=== PATIENT | male | born 1945 | race Caucasian/White ===

== ENCOUNTER 2016-12-05 09:30 | Outpatient (RCR) | payer MEDICARE, OTHER ==
[~2016-12-05 09:30] MED LIST: ADALAT CC30 MG PO; ASPIRIN 81M81 MG/TA2 PO; BP MEDS X2; FOLIC ACID0.4 MG PO; HCTZ PO; HYDROCODONE/APAP PO; IRON325 MG PO; LOTENSIN5 MG PO; NORCO 325 MG-51 TAB PO; TYLENOL 325MG325 MG PO; ULTRAM 50MG TAB50 MG PO; ZOCOR 40MG40 MG PO; ZOCOR5 MG PO
== END 2016-12-08 | disposition home or self-care (01) ==
LOC: WSPT
DX: M51.35 Other intervertebral disc degeneration, thoracolumbar region (principal); M43.16 Spondylolisthesis, lumbar region
CPT/HCPCS: G8978-GP; G8979-GP

== ENCOUNTER 2017-03-05 08:00 | Outpatient (RCR) | payer MEDICARE, OTHER | END 2017-03-12 | disposition home or self-care (01) | LOC: WSPT | DX: M51.35 Other intervertebral disc degeneration, thoracolumbar region (principal); M43.16 Spondylolisthesis, lumbar region | CPT/HCPCS: G8978-GP; G8979-GP ==

== ENCOUNTER → 2017-04-21 | Outpatient (CLI) | payer MEDICARE, OTHER ==
[~2017-04-21] VITALS: Ht 180.3 cm; Wt 91.5 kg
[~2017-04-21] MED LIST changes: +FLOMAX 0.40.4 MG/CAP PO; +ZOFRAN ODT4 MG PO
[2017-04-21 07:02] VITALS: BP 139/79; BP 153/84; PULSE 73
[2017-04-21 08:12] VITALS: BP 149/81; PULSE 74
== END ==
LOC: COL.RAD 06:45
DX: M51.36 Other intervertebral disc degeneration, lumbar region (principal)
CPT/HCPCS: J3301

== ENCOUNTER 2017-05-01 13:15 | Outpatient (RCR) | payer MEDICARE, OTHER ==
[~2017-05-01 13:15] MED LIST changes: -FLOMAX 0.40.4 MG/CAP PO; -ZOFRAN ODT4 MG PO
== END 2017-05-07 07:56 | disposition still patient (30) ==
LOC: WSPT 13:15
DX: M51.35 Other intervertebral disc degeneration, thoracolumbar region (principal)
CPT/HCPCS: G8979-GP; G8980-GP

== ENCOUNTER 2017-05-21 06:05 | Emergency (ER) | payer MEDICARE, OTHER ==
[~2017-05-21] VITALS: Ht 180.3 cm; Wt 88.2 kg
[2017-05-21 06:07] VITALS: TEMP 98.3
[2017-05-21 06:48] LABS: BASO % 0.2 % (0.0-2.0); EOS % 0.2 % (0-4.0); GRAN # 9.3 (1.4-6.5); GRAN % 87.5 % (42.2-75.2); HEMATOCRIT 44.3 % (42.0-52.0); HEMOGLOBIN 15.1 g/dl (13.5-18.0); LYMPH # 0.6 (1.2-3.4); MEAN CELL VOLUME 90 fl (80.0-100.0); MEAN CORPUSCULAR HEMOGLOBIN 31 pg (27.0-31.0); MEAN CORPUSCULAR HGB CONC 34 g/dl (33.0-37.0); MEAN PLATELET VOLUME 9.8 fl (7.4-10.4); MONO # 0.6 (0.1-0.6); MONO % 5.7 % (1.7-9.3); PLATELET COUNT 189 K/mm3 (130-400); REDCELL DISTRIBUTION WIDTH-CV 12.9 % (11.5-14.5); WHITE BLOOD COUNT 10.7 K/mm3 (4.8-10.8)
[2017-05-21 07:07] LABS: ADJUSTED CALCIUM 9.8 mg/dL (8.4-10.2); ALBUMIN 4.4 gm/dL (3.5-5.0); BILIRUBIN,TOTAL 0.9 mg/dL (0.0-1.0); C-REACTIVE PROTEIN 0.6 mg/dL (0.0-0.9); CALCIUM 10.1 mg/dL (8.4-10.2); CREATININE, serum 1.36 mg/dL (0.66-1.25); POTASSIUM 3.9 mmol/L (3.4-5.0); TOTAL PROTEIN 7.1 gm/dL (6.4-8.2)
[2017-05-21 08:19] LABS: PH 7 (5-8); SQUAMOUS EPITHELIAL None Seen /hpf; URINE APPEARANCE Clear; URINE BACTERIA None Seen /hpf; URINE BILIRUBIN Negative (NEGATIVE); URINE BLOOD Negative (NEGATIVE); URINE COLOR Straw; URINE GLUCOSE Negative (NEGATIVE); URINE KETONE Negative (NEGATIVE); URINE UROBILINOGEN Negative (NEGATIVE); URINE WBC 0-2 /hpf
[2017-05-21] MEDS ORDERED: FLOMAX 0.40.4 MG/CAP PO (09:28)
[2017-05-21] MEDS ORDERED: NORCO 325 MG-51 TAB PO (09:28)
[2017-05-21] MEDS ORDERED: ZOFRAN ODT4 MG PO (09:28)
[2017-05-21 09:40] VITALS: BP 155/86; PULSE 73
== END 2017-05-21 09:40 | disposition home or self-care (01) ==
LOC: COL.ER 06:05
PROVIDERS: Emergency Medicine
DX: N20.2 Calculus of kidney with calculus of ureter (principal); I10 Essential (primary) hypertension; K58.9 Irritable bowel syndrome, unspecified
CPT/HCPCS: J1170; J2405; J3010; J7030; Q9967

== ENCOUNTER → 2017-09-29 | Outpatient (CLI) | payer MEDICARE, OTHER ==
[~2017-09-29] VITALS: Ht 180.3 cm; Wt 89.0 kg
[~2017-09-29] MED LIST changes: +FLOMAX 0.40.4 MG/CAP PO; +ZOFRAN ODT4 MG PO
[2017-09-29 07:06] VITALS: BP 142/86; PULSE 66
[2017-09-29 08:00] VITALS: BP 146/85; PULSE 67
== END ==
LOC: COL.RAD 06:40
DX: M51.36 Other intervertebral disc degeneration, lumbar region (principal); G89.29 Other chronic pain
CPT/HCPCS: J3301

== ENCOUNTER 2018-01-29 10:30 | Outpatient (RCR) | payer MEDICARE, OTHER | END 2018-02-02 | disposition home or self-care (01) | LOC: WSPT | DX: M54.42 Lumbago with sciatica, left side (principal); G89.29 Other chronic pain | CPT/HCPCS: G8978-GP; G8979-GP ==

== ENCOUNTER 2018-04-30 09:45 | Outpatient (RCR) | payer MEDICARE, OTHER | END 2018-05-04 | disposition home or self-care (01) | LOC: WSPT | DX: M54.42 Lumbago with sciatica, left side (principal); G89.29 Other chronic pain ==

== ENCOUNTER 2018-06-09 08:00 | Outpatient (RCR) | payer MEDICARE, OTHER ==
[2018-06-29] MEDS ORDERED: FOLIC ACID 11 MG/TA1 PO (20:25)
[2018-06-30] MEDS ORDERED: FERRO-TIME325 MG PO
[2018-06-30] MEDS ORDERED: NORCO 325 MG-7.1 TAB PO (00:05)
[2018-06-30] MEDS ORDERED: PREDNISONE20 MG PO (10:17)
[2018-06-30] MEDS ORDERED: EPIPEN 2-PAK1 MG/ML IM (10:30)
== END 2018-09-02 | disposition home or self-care (01) ==
LOC: WSPT
DX: M54.42 Lumbago with sciatica, left side (principal); G89.29 Other chronic pain
CPT/HCPCS: G8979-GP; G8980-GP

== ENCOUNTER → 2018-07-15 | Outpatient (CLI) | payer MEDICARE, OTHER ==
[~2018-07-15] VITALS: Ht 180.3 cm; Wt 90.0 kg
[~2018-07-15] MED LIST changes: +EPIPEN 2-PAK1 MG/ML IM; +FERRO-TIME325 MG PO; +FOLIC ACID 11 MG/TA1 PO; +NORCO 325 MG-7.1 TAB PO; +PREDNISONE20 MG PO
[2018-07-15 13:42] VITALS: BP 143/78; PULSE 66
[2018-07-15 15:00] VITALS: BP 159/84; PULSE 70
== END ==
LOC: COL.RAD 13:00
DX: M51.16 Intervertebral disc disorders with radiculopathy, lumbar region (principal); M48.061 Spinal stenosis, lumbar region without neurogenic claudication
CPT/HCPCS: J3301

== ENCOUNTER → 2018-07-22 | Outpatient (CLI) | payer MEDICARE, OTHER ==
[~2018-07-22] VITALS: Ht 180.3 cm; Wt 90.2 kg
[2018-07-22 07:11] VITALS: BP 141/82; PULSE 69
[2018-07-22 08:35] VITALS: BP 153/87; PULSE 68
== END ==
LOC: COL.RAD 06:52
DX: M43.16 Spondylolisthesis, lumbar region (principal); M51.36 Other intervertebral disc degeneration, lumbar region
CPT/HCPCS: J3301

== ENCOUNTER → 2018-11-26 | Outpatient (CLI) | payer MEDICARE, OTHER ==
[~2018-11-26] VITALS: Ht 180.3 cm; Wt 91.7 kg
[2018-11-26 13:44] VITALS: BP 157/81; PULSE 80
[2018-11-26 15:05] VITALS: BP 146/84; PULSE 75
== END ==
LOC: COL.RAD 13:30
DX: M51.36 Other intervertebral disc degeneration, lumbar region (principal)
CPT/HCPCS: J3301

== ENCOUNTER → 2018-12-31 | Outpatient (CLI) | payer MEDICARE, OTHER | LOC: COL.RAD 12-29 12:45 | DX: M43.16 Spondylolisthesis, lumbar region (principal); M54.16 Radiculopathy, lumbar region ==

== ENCOUNTER 2019-01-27 10:30 | Outpatient (RCR) | payer MEDICARE, OTHER | END 2019-02-01 09:17 | disposition home or self-care (01) | LOC: WSPT 10:30 | DX: M47.817 Spondylosis without myelopathy or radiculopathy, lumbosacral region (principal) ==

== ENCOUNTER → 2019-09-09 | Outpatient (CLI) | payer MEDICARE, OTHER ==
[~2019-09-09] VITALS: Ht 180.3 cm; Wt 91.3 kg
[2019-09-09 06:57] VITALS: BP 137/80; PULSE 65
[2019-09-09 07:45] VITALS: BP 143/86; PULSE 69
== END ==
LOC: COL.RAD 06:30
DX: M51.16 Intervertebral disc disorders with radiculopathy, lumbar region (principal); M43.16 Spondylolisthesis, lumbar region
CPT/HCPCS: J3301

== ENCOUNTER → 2019-12-23 | Outpatient (CLI) | payer MEDICARE, OTHER ==
[~2019-12-23] VITALS: Ht 180.3 cm; Wt 89.1 kg
[2019-12-23 11:42] VITALS: BP 124/84; PULSE 74
[2019-12-23 12:35] VITALS: BP 145/81; PULSE 73
== END ==
LOC: COL.RAD 11:23
DX: M51.36 Other intervertebral disc degeneration, lumbar region (principal)
CPT/HCPCS: J3301

== ENCOUNTER 2021-04-05 15:00 | Outpatient (RCR) | payer MEDICARE, OTHER | END 2021-04-05 16:00 | disposition home or self-care (01) | LOC: WSPT 15:00 | DX: M51.36 Other intervertebral disc degeneration, lumbar region (principal); M19.09 Primary osteoarthritis, other specified site; I10 Essential (primary) hypertension; E78.00 Pure hypercholesterolemia, unspecified ==

== ENCOUNTER 2021-04-23 13:57 | Emergency (ER) | payer MEDICARE, OTHER ==
[~2021-04-23] VITALS: Ht 177.8 cm; Wt 83.6 kg
[2021-04-23 14:10] VITALS: TEMP 98.3
[2021-04-23 16:03] VITALS: BP 140/80; PULSE 77
== END 2021-04-23 16:05 | disposition home or self-care (01) ==
LOC: COL.ER 13:57
DX: M17.11 Unilateral primary osteoarthritis, right knee (principal)
CPT/HCPCS: L1846